=== PATIENT | female | born 2000 | race Caucasian/White ===

== ENCOUNTER 2021-11-24 17:12 | Emergency (ER) | payer OTHER ==
[~2021-11-24] VITALS: Ht 175.3 cm; Wt 70.8 kg
[2021-11-24 17:18] VITALS: BP 139/76
[2021-11-24] MEDS ORDERED: LIDOCAINE HCL-MPF 2% 10ML AMP IJ ONE (17:24)
[2021-11-24] MEDS ORDERED: BACITRACIN 1 EACH PACKET TP ONE (17:58)
[2021-11-24] MEDS ORDERED: MUPIROCIN OINTMENT 22 GM TUBE TP SCH (18:00)
== END 2021-11-24 18:14 | disposition home or self-care (01) ==
LOC: EDH 17:12
DX: S61.217A Laceration without foreign body of left little finger without damage to nail, initial encounter (principal); Z98.890 Other specified postprocedural states; W26.0XXA Contact with knife, initial encounter; Y93.89 Activity, other specified; Y92.89 Other specified places as the place of occurrence of the external cause; Y99.8 Other external cause status
CPT/HCPCS: 99282; 12002; J3490